=== PATIENT | female | born 1960 | race Caucasian/White ===

== ENCOUNTER 2020-02-10 12:34 | Outpatient (CLI) | payer OTHER ==
[~2020-02-10 12:34] MED LIST: AMPH30TA2 PO; LEVO125T PO; TENEX PO
== END 2020-02-10 23:59 | disposition home or self-care (01) ==
LOC: CFH 12:34
PROVIDERS: ATTEND Family Medicine
DX: Z12.31 Encounter for screening mammogram for malignant neoplasm of breast (principal)
CPT/HCPCS: 77063; 77067